=== PATIENT | female | born 1980 | race American Indian/Alaskan Native ===

== ENCOUNTER 2018-12-19 16:55 | Emergency (ER) | payer MEDICAID ==
[2018-12-19 17:22] VITALS: BP 153/75
--- NOTE | 2018-12-19 17:27 | Event Note ---
ED Screening Note Date of service: 12/19/17 Time: 17:23 ED Screening Note: Pt complains of right flank x this morning. +urinary frequency. also states pain in right leg when bending over. denies dysuria/hematuria, or hx of kidney stones +R CVA tenderness states pain 8/10 in severity This initial assessment/diagnostic orders/clinical plan/treatment(s) is/are subject to change based on patients health status, clinical progression and re- assessment by fellow clinical providers in the ED. Further treatment and workup at subsequent clinical providers discretion. Patient/guardian urged not to elope from the ED as their condition may be serious if not clinically assessed and managed. Initial orders include:
[2018-12-19 18:46] LABS: Bilirubin,Urine NEG (Negative); Blood,Urine LG (Negative); Color,Urine Yellow (Yellow); Mucus,Urine 3+ /HPF; Protein,Urine <15 mg/dL mg/dL (Negative); Urobilinogen,Urine < 2.0 mg/dL (<2.0)
[2018-12-19 18:53] LABS: Hematocrit 36.8 % (30.3-42.9); Hemoglobin 11.7 gm/dl (10.1-14.3); Mean Corpuscular HGB Conc 32 % (30-34); Mean Corpuscular Volume 88 fl (79-97); Platelet Count 302 K/mm3 (140-440); Red Blood Count 4.17 M/mm3 (3.65-5.03); Red Cell Distribution Width 15.4 % (13.2-15.2)
[2018-12-19 19:08] LABS: BUN/Creatinine Ratio 15; Blood Urea Nitrogen 9 mg/dL (7-17); Calcium 8.9 mg/dL (8.4-10.2); Hemolysis Index 6
--- NOTE | 2018-12-19 20:07 | Emergency Department Report ---
ED Abdominal Pain HPI - General Chief Complaint: Abdominal Pain Stated Complaint: R FLANK/KNEE PAIN Time Seen by Provider: 12/19/18 17:22 Source: patient Mode of arrival: Ambulatory Limitations: No Limitations - History of Present Illness Initial Comments: This is a 38-year-old female with no prior medical conditions who presents to ED complaining of right sided upper flank pain that began this morning. Patient's physician woke up this morning and felt her right sharp aching pain to her right abdomen area. She states that pain is worsened when she moves. She denies any injury trauma to the abdomen. She denies nausea vomiting or diarrhea. She denies fever/any urinary symptoms MD Complaint: flank pain (right) -: This morning Radiation: none Migration to: no migration Severity scale (0 -10): 5 Quality: aching Worsens With: movement - Related Data Previous Rx's Medication Instructions Recorded Last Taken Type Cyclobenzaprine [Flexeril] 10 mg PO QHS PRN #20 tablet 12/19/18 Unknown Rx Ibuprofen [Motrin 800 MG tab] 800 mg PO Q8HR PRN #30 tablet 12/19/18 Unknown Rx Allergies Allergy/AdvReac Type Severity Reaction Status Date / Time No Known Allergies Allergy Unverified 12/19/18 16:58 ED Review of Systems ROS: Stated complaint: R FLANK/KNEE PAIN Other details as noted in HPI Comment: All other systems reviewed and negative ED Past Medical Hx - Past Medical History Previous Medical History?: No - Surgical History Past Surgical History?: Yes Additional Surgical History: Tubal ligation 04/2006 - Social History Smoking Status: Never Smoker Substance Use Type: None - Medications Home Medications: Home Medications Medication Instructions Recorded Confirmed Last Taken Type Cyclobenzaprine [Flexeril] 10 mg PO QHS PRN #20 tablet 12/19/18 Unknown Rx Ibuprofen [Motrin 800 MG tab] 800 mg PO Q8HR PRN #30 tablet 12/19/18 Unknown Rx ED Physical Exam - General Limitations: No Limitations General appearance: alert, in no apparent distress - Head Head exam: Present: atraumatic, normocephalic - Eye Eye exam: Present: normal appearance - ENT ENT exam: Present: mucous membranes moist - Neck Neck exam: Present: normal inspection - Respiratory Respiratory exam: Present: normal lung sounds bilaterally. Absent: respiratory distress - Cardiovascular Cardiovascular Exam: Present: regular rate, normal rhythm. Absent: systolic murmur, diastolic murmur, rubs, gallop - GI/Abdominal GI/Abdominal exam: Present: soft, normal bowel sounds. Absent: distended, tenderness, guarding, mass - Extremities Exam Extremities exam: Present: normal inspection, full ROM - Back Exam Back exam: Present: normal inspection, full ROM, CVA tenderness (R) (tenderness to palpation of the right flank region. No bruising, no swelling, no ecchymosis noted). Absent: CVA tenderness (L) - Neurological Exam Neurological exam: Present: alert, oriented X3, normal gait - Psychiatric Psychiatric exam: Present: normal affect, normal mood - Skin Skin exam: Present: warm, dry, intact, normal color. Absent: rash ED Course Vital Signs 12/19/18 17:00 Temperature 98.4 F Pulse Rate 62 Respiratory 18 Rate Blood Pressure 153/75 O2 Sat by Pulse 98 Oximetry ED Medical Decision Making - Lab Data Result diagrams: 12/19/18 18:20 12/19/18 18:20 Laboratory Last Values WBC 5.5 K/mm3 (4.5-11.0) 12/19/18 18:20 RBC 4.17 M/mm3 (3.65-5.03) 12/19/18 18:20 Hgb 11.7 gm/dl (10.1-14.3) 12/19/18 18:20 Hct 36.8 % (30.3-42.9) 12/19/18 18:20 MCV 88 fl (79-97) 12/19/18 18:20 MCH 28 pg (28-32) 12/19/18 18:20 MCHC 32 % (30-34) 12/19/18 18:20 RDW 15.4 % (13.2-15.2) H 12/19/18 18:20 Plt Count 302 K/mm3 (140-440) 12/19/18 18:20 Sodium 141 mmol/L (137-145) 12/19/18 18:20 Potassium 3.9 mmol/L (3.6-5.0) 12/19/18 18:20 Chloride 102.6 mmol/L (98-107) 12/19/18 18:20 Carbon Dioxide 27 mmol/L (22-30) 12/19/18 18:20 Anion Gap 15 mmol/L 12/19/18 18:20 BUN 9 mg/dL (7-17) 12/19/18 18:20 Creatinine 0.6 mg/dL (0.7-1.2) L 12/19/18 18:20 Estimated GFR > 60 ml/min 12/19/18 18:20 BUN/Creatinine Ratio 15 % 12/19/18 18:20 Glucose 83 mg/dL (65-100) 12/19/18 18:20 Calcium 8.9 mg/dL (8.4-10.2) 12/19/18 18:20 HCG, Qual Negative (Negative) 12/19/18 18:20 Urine Color Yellow (Yellow) 12/19/18 Unknown Urine Turbidity Hazy (Clear) 12/19/18 Unknown Urine pH 5.0 (5.0-7.0) 12/19/18 Unknown Ur Specific [place] 1.029 (1.003-1.030) 12/19/18 Unknown Urine Protein <15 mg/dl mg/dL (Negative) 12/19/18 Unknown Urine Glucose (UA) Neg mg/dL (Negative) 12/19/18 Unknown Urine Ketones Neg mg/dL (Negative) 12/19/18 Unknown Urine Blood Lg (Negative) 12/19/18 Unknown Urine Nitrite Neg (Negative) 12/19/18 Unknown Urine Bilirubin Neg (Negative) 12/19/18 Unknown Urine Urobilinogen < 2.0 mg/dL (<2.0) 12/19/18 Unknown Ur Leukocyte Esterase Tr (Negative) 12/19/18 Unknown Urine WBC (Auto) 2.0 /HPF (0.0-6.0) 12/19/18 Unknown Urine RBC (Auto) 5.0 /HPF (0.0-6.0) 12/19/18 Unknown U Epithel Cells (Auto) 13.0 /HPF (0-13.0) 12/19/18 Unknown Urine Mucus 3+ /HPF 12/19/18 Unknown - Medical Decision Making This is a 38-year-old female who presents to ED with right flank pain most likely secondary to muscle strain. All labs are within normal limits, CBC, don't BMP urinalysis and urine tests were ordered. Urinalysis shows no signs of infection or suggestive of kidney stone. Normal findings. Negative test. Pain is only worsened with movement which is suggestive of muscle strain. Discussed the patient to follow up with her primary care physician in 3-5 days. Discussed with patient to rest and no strenuous activities for the next couple o f days. Vital signs are normal she is in no acute distress - Differential Diagnosis UTI, kidney stone, , myalgia Critical care attestation.: If time is entered above; I have spent that time in minutes in the direct care of this critically ill patient, excluding procedure time. ED Disposition Clinical Impression: Muscle strain, Flank pain Disposition: - TO HOME OR SELFCARE Is pt being admited?: No Does the pt Need Aspirin: No Condition: Stable Instructions: Abdominal Pain (ED), Muscle Strain (ED) Additional Instructions: Make sure to follow up with the primary care physician as discussed. Take all your medications as you've been prescribed. If you have any worsening symptoms or develop new symptoms please return to ED immediately. Referrals: PRIMARY CARE, [Primary Care Provider] - 3-5 Days [facility] [Outside] - 3-5 Days [facility] [Outside] - 3-5 Days Forms: Work/School Release Form(ED) Time of Disposition: 20:12
== END 2018-12-19 20:27 | disposition home or self-care (01) ==
LOC: ED 16:55
DX: S39.011A Strain of muscle, fascia and tendon of abdomen, initial encounter (principal); S86.811A Strain of other muscle(s) and tendon(s) at lower leg level, right leg, initial encounter; Z98.51 Tubal ligation status; Z79.899 Other long term (current) drug therapy; X58.XXXA Exposure to other specified factors, initial encounter; Y93.89 Activity, other specified; Y92.89 Other specified places as the place of occurrence of the external cause; Y99.8 Other external cause status
CPT/HCPCS: 36415; 80048; 81001; 84703; 85027

== ENCOUNTER 2019-07-28 09:49 | Emergency (ER) | payer MEDICAID ==
[2019-07-28 09:58] VITALS: BP 142/90
[2019-07-28] MEDS ORDERED: predniSONE 20 MG TAB PO ONE (10:40)
[2019-07-28] MEDS ORDERED: KETOROLAC 60 MG/2 ML INJ IM ONE (10:40)
--- NOTE | 2019-07-28 10:44 | Emergency Department Report ---
ED Neck Pain/Injury HPI - General Chief Complaint: Neck Pain/Injury Stated Complaint: NECK AND SHOULDER PAIN Time Seen by Provider: 07/28/19 10:36 Mode of arrival: Ambulatory Limitations: No Limitations - History of Present Illness Initial Comments: This is a 39-year-old female nontoxic, well nourished in appearance, no acute signs of distress presents to the ED with c/o of left upper back pain with radiation to left shoulder. Patient stated that she woke up with pain. Patient stated pain is aggravated with movement and resolved with rest. Patient denies any trauma. Denies any bladder or bowel instability. Patient denies any urinary symptoms. Denies any fever, chills, nausea, vomiting, headache, stiff neck, chest pain or shortness of breath. Patient denies any numbness or tingling. Denies any allergies. Denies significant past medical history. MD Complaint: upper back pain -: week(s) Radiation: left shoulder Severity: mild Severity scale (0 -10): 5 Quality: aching Consistency: intermittent Improves With: immobilization Worsens With: movement of extremity, movement of neck Associated Symptoms: none. denies: headache, fever, numbness, tingling, weakness, vertigo, difficulty walking, swollen glands, difficulty swallowing, nausea, vomiting Treatments Prior to Arrival: none - Related Data Previous Rx's Medication Instructions Recorded Last Taken Type Ibuprofen [Motrin 800 MG tab] 800 mg PO Q8HR PRN #30 tablet 12/19/18 Unknown Rx Cyclobenzaprine [Flexeril] 10 mg PO HS #20 tablet 12/20/18 Unknown Rx Cyclobenzaprine [Flexeril] 10 mg PO QHS PRN #10 tablet 07/28/19 Unknown Rx Naproxen 500 mg PO Q12H PRN #20 tablet 07/28/19 Unknown Rx Allergies Allergy/AdvReac Type Severity Reaction Status Date / Time No Known Allergies Allergy Unverified 12/19/18 16:58 ED Review of Systems ROS: Stated complaint: NECK AND SHOULDER PAIN Other details as noted in HPI Constitutional: denies: chills, fever Eyes: denies: eye pain, eye discharge, vision change ENT: denies: ear pain, throat pain Respiratory: denies: cough, shortness of breath, wheezing Cardiovascular: denies: chest pain, palpitations Endocrine: no symptoms reported Gastrointestinal: denies: abdominal pain, nausea, diarrhea Genitourinary: denies: urgency, dysuria, discharge Musculoskeletal: denies: back pain, joint swelling, arthralgia Skin: denies: rash, lesions Neurological: denies: headache, weakness, paresthesias Psychiatric: denies: anxiety, depression Hematological/Lymphatic: denies: easy bleeding, easy bruising ED Past Medical Hx - Past Medical History Previous Medical History?: No - Surgical History Past Surgical History?: Yes Additional Surgical History: Tubal ligation 04/2006 - Social History Smoking Status: Never Smoker Substance Use Type: None - Medications Home Medications: Home Medications Medication Instructions Recorded Confirmed Last Taken Type Ibuprofen [Motrin 800 MG tab] 800 mg PO Q8HR PRN #30 tablet 12/19/18 Unknown Rx Cyclobenzaprine [Flexeril] 10 mg PO HS #20 tablet 12/20/18 Unknown Rx Cyclobenzaprine [Flexeril] 10 mg PO QHS PRN #10 tablet 07/28/19 Unknown Rx Naproxen 500 mg PO Q12H PRN #20 tablet 07/28/19 Unknown Rx ED Physical Exam - General Limitations: No Limitations General appearance: alert, in no apparent distress - Head Head exam: Present: atraumatic, normocephalic - Eye Eye exam: Present: normal appearance - Neck Neck exam: Present: normal inspection, full ROM. Absent: tenderness, meningismus, lymphadenopathy - Extremities Exam Extremities exam: Present: normal inspection, full ROM, normal capillary refill. Absent: tenderness, joint swelling - Back Exam Back exam: Present: normal inspection, full ROM, paraspinal tenderness (left cervical paraspinal). Absent: tenderness, CVA tenderness (R), CVA tenderness (L), muscle spasm, vertebral tenderness, rash noted - Neurological Exam Neurological exam: Present: alert, oriented X3, normal gait - Psychiatric Psychiatric exam: Present: normal affect, normal mood - Skin Skin exam: Present: warm, dry, intact, normal color. Absent: rash ED Course Vital Signs 07/28/19 09:53 Temperature 98.8 F Pulse Rate 86 Respiratory 18 Rate Blood Pressure 142/90 O2 Sat by Pulse 98 Oximetry - Reevaluation(s) Reevaluation #1: 07/28/19 10:43 Patient is speaking in full sentences with no signs of distress noted. ED Medical Decision Making - Medical Decision Making This is a 39-year-old female that presents with cervical muscle strain. Patient is stable was examined by me. There is no spinal tenderness. There is no cauda equina syndrome during examination. No bladder or bowel instability. Patient received Toradol 60 mg IM and prednosone in the ED which stated that her symptoms has resolved and subsided. Patient is discharged with muscle relaxant and Motrin. Patient was instructed not to operate any machinery while taking muscle relaxant as they cause her drowsiness. Patient was referred to Follow-up with a primary care doctor in 3-5 days or if symptoms worsen and continue return to emergency room as soon as possible. At time of discharge, the patient does not seem toxic or ill in appearance. No acute signs of distress noted. Patient agrees to discharge treatment plan of care. No further questions noted by the patient. This chart is dictated with using [employer] Critical care attestation.: If time is entered above; I have spent that time in minutes in the direct care of this critically ill patient, excluding procedure time. ED Disposition Clinical Impression: Cervical muscle strain Qualifiers: Encounter type: initial encounter Qualified Code(s): S16.1XXA - Strain of muscle, fascia and tendon at neck level, initial encounter Disposition: DC-01 TO HOME OR SELFCARE Is pt being admited?: No Does the pt Need Aspirin: No Condition: Stable Instructions: Cyclobenzaprine (By mouth), Muscle Strain (ED) Additional Instructions: Follow-up with your primary care doctor in 3-5 days or if symptoms worsen such as bladder or bowel stability, chest pain, short of breath, numbness or tingling sensation in extremities, headache, dizziness, visual changes, nausea vomiting, or abdominal pain, return back to emergency room as was possible. Take naproxen and Flexeril as prescribed. Do not operate heavy machinery while taking Flexeril due to sedation Prescriptions: Cyclobenzaprine [Flexeril] 10 mg PO QHS PRN #10 tablet PRN Reason: Muscle Spasm Naproxen 500 mg PO Q12H PRN #20 tablet PRN Reason: Pain , Severe (7-10) Referrals: SHAWNA PARADA MD [Primary Care Provider] - 3-5 Days PEPPER BRYANT MD [Staff Physician] - 3-5 Days [facility] [Provider Group] - 3-5 Days Forms: Work/School Release Form(ED)
== END 2019-07-28 12:15 | disposition home or self-care (01) ==
LOC: ED 09:49
DX: S16.1XXA Strain of muscle, fascia and tendon at neck level, initial encounter (principal); Z98.51 Tubal ligation status; Z79.1 Long term (current) use of non-steroidal anti-inflammatories (NSAID); Z79.899 Other long term (current) drug therapy; X58.XXXA Exposure to other specified factors, initial encounter; Y93.89 Activity, other specified; Y92.89 Other specified places as the place of occurrence of the external cause; Y99.8 Other external cause status
CPT/HCPCS: 96372; 99282; J1885; J7512

== ENCOUNTER 2020-03-05 15:52 | Emergency (ER) | payer MEDICAID ==
[2020-03-05 16:39] VITALS: BP 140/94
--- NOTE | 2020-03-05 16:58 | Emergency Department Report ---
Chief Complaint: Extremity Injury, Lower Stated Complaint: LT FOOT/HEEL PAIN Time Seen by Provider: 03/05/20 16:45 - HPI History of Present Illness: This is a 40-year-old female with no prior medical history presents the ED complaining of left heel pain for about a week now. Patient states that she is noticed on her left foot is a little dry cracked more than the right. Patient states that she did not sustain any bleeding injuries. Patient denies any swelling, rash, difficulty walking. She denies fever/chills/nausea vomiting/abdominal pain/chest pain shortness of breath or any other problems. - ROS Review of Systems: All systems reviewed and negative - Exam Vital Signs: Vital Signs 03/05/20 16:38 Temperature 98.2 F Pulse Rate 92 H Respiratory 20 Rate Blood Pressure 140/94 O2 Sat by Pulse 98 Oximetry Physical Exam: Normal exam GENERAL: Alert and oriented x3, no apparent distress, Normal Gait, atraumatic. HEAD: Head is normocephalic and a-traumatic. EXTREMITIES/MUSCULOSKELETAL: No cyanosis, clubbing, rash, lesions or edema. Full ROM bilaterally. UE/LE Pulses 2+ bilaterally. LE and UE 5+ strength bilaterally, bilateral heel dryness, several cracks noted. No bleeding noted to bilateral heel or toes drainage. Nontender to palpation bilaterally SKIN: Warm and dry, No lesions, No ulceration or induration present. MSE screening note: Focused history and physical exam performed. Due to findings the following was ordered: ED Medical Decision Making - Medical Decision Making 40-year-old female presents to the ED with dry cracked heels. Patient had no medical emergency throughout ED stay. Discussed with patient need to follow-up traced. I discussed foot soak heel care for the patient. Vital signs are normal and she is in no acute distress. Patient understands and instructions. ED Disposition for MSE Clinical Impression: Heel callus, Heel pain, bilateral Disposition: DC-01 TO HOME OR SELFCARE Is pt being admited?: No Does the pt Need Aspirin: No Condition: Stable Instructions: Corns and Calluses, Heel Spur Additional Instructions: Follow-up with the bioinformatician as discussed. If you have any worsening symptoms please return to the ED. Please make sure you soak foot as to avoid worsening of cracks. Make sure to use Aquaphor, Eucerin and foot soaks moisturizers Prescriptions: Emollient Combination No.114 [Eucerin Advanced Repair] 1 applic TP DAILY #1 cream..g. Referrals: [facility] [Outside] - 3-5 Days [facility] [Outside] - 3-5 Days [facility] [Outside] - 3-5 Days MADALYN HOOKS DPM [Staff Physician] - 3-5 Days DANIELLE BILLS MD [Staff Physician] - 3-5 Days Forms: Work/School Release Form(ED) Time of Disposition: 17:05
== END 2020-03-05 17:58 | disposition home or self-care (01) ==
LOC: ED 15:52
DX: L84 Corns and callosities (principal); M79.672 Pain in left foot; M79.671 Pain in right foot
CPT/HCPCS: 99282

== ENCOUNTER 2020-10-15 12:06 | Outpatient (CLI) | payer MEDICAID, OTHER ==
[2020-10-15 12:48] LABS: Eosinophils % (Auto) 0.7 % (0.0-4.3); Hematocrit 34.8 % (30.3-42.9); Hemoglobin 11.4 gm/dl (10.1-14.3); Lymphocytes # (Auto) 2.6 K/mm3 (1.2-5.4); Lymphocytes % (Auto) 37.1 % (13.4-35.0); Mean Corpuscular HGB Conc 33 % (30-34); Mean Corpuscular Volume 84 fl (79-97); Monocytes # (Auto) 0.5 K/mm3 (0.0-0.8); Monocytes % (Auto) 7.6 % (0.0-7.3); Platelet Count 368 K/mm3 (140-440); Red Blood Count 4.13 M/mm3 (3.65-5.03); Red Cell Distribution Width 16.1 % (13.2-15.2)
[2020-10-15 12:49] LABS: Basophils % (Auto) 0.3 % (0.0-1.8)
[2020-10-15 13:01] LABS: Alanine Aminotransferase 20 units/L (7-56); Blood Urea Nitrogen 12 mg/dL (7-17); Calcium 9.5 mg/dL (8.4-10.2); HDL Cholesterol 69 mg/dL (40-59); Hemolysis Index 1; LDL Cholesterol,Direct 113 mg/dL (50-130)
[2020-10-15 13:02] LABS: BUN/Creatinine Ratio 20
== END 2020-10-15 12:07 | disposition home or self-care (01) ==
LOC: LAB 12:06
PROVIDERS: ATTEND Internal Medicine
DX: E66.01 Morbid (severe) obesity due to excess calories (principal); Z00.00 Encounter for general adult medical examination without abnormal findings; Z13.1 Encounter for screening for diabetes mellitus; Z13.29 Encounter for screening for other suspected endocrine disorder; I10 Essential (primary) hypertension; Z13.220 Encounter for screening for lipoid disorders; E55.9 Vitamin D deficiency, unspecified
CPT/HCPCS: 36415; 80053; 80061; 82306; 83036; 84443; 85025

== ENCOUNTER 2021-04-20 20:46 | Emergency (ER) | payer OTHER ==
[2021-04-20 22:08] VITALS: BP 218/103
--- NOTE | 2021-04-20 23:21 | Emergency Department Report ---
ED Extremity Problem HPI - General Chief complaint: Extremity Injury, Lower Stated complaint: LEFT FOOT PAIN/ Source: patient Mode of arrival: Ambulatory Limitations: No Limitations - History of Present Illness Initial comments: Patient is a 41-year-old -[place] female with a history of hypertension who presents to the ED with complaint of persistent bilateral plantar foot pain for the last 1 year intermittently, due to persistent cracked open sores on her plantar feet. Patient states that she has previously been evaluated by a quality assistant who prescribed topical steroid ointment but that this ointment did not work. Patient states that in the last 2 weeks, she has not been able to bear weight on her bilateral feet because of worsening bilateral plantar foot p ain. Patient denies fever, chills, nausea and vomiting, traumatic injury, chest pain, shortness of breath, numbness and tingling or weakness of bilateral lower extremities. MD Complaint: extremity pain (Bilateral plantar foot pain), other (cracked plantar foot with pain) -: Gradual, year(s) (1) Location: bilateral lower extremity (bilateral foot) History of Same: Yes (chronic) -: Yes arthralgia, No fever, No associated dyspnea, No associated chest pain Radiation: distal Severity scale (0 -10): 6 Quality: burning, aching, sharp Consistency: constant Improves with: rest Worsens with: weight bearing, walking, exertion, palpation Associated Symptoms: denies other symptoms. denies: chest pain, shortness of breath, fever, myalgias, arthralgias - Related Data Previous Rx's Medication Instructions Recorded Last Taken Type Cyclobenzaprine [Flexeril] 10 mg PO HS #20 tablet 12/20/18 Unknown Rx Cyclobenzaprine [Flexeril] 10 mg PO QHS PRN #10 tablet 07/28/19 Unknown Rx Naproxen 500 mg PO Q12H PRN #20 tablet 07/28/19 Unknown Rx Emollient Combination No.114 1 applic TP DAILY #1 cream..g. 03/05/20 Unknown Rx [Eucerin Advanced Repair] Acitretin [Soriatane] 1 cap PO QDAY #30 cap 04/20/21 Unknown Rx Ibuprofen [Motrin 800 MG tab] 800 mg PO Q8HR PRN #30 tablet 04/20/21 Unknown Rx Triamcinolone Acetonide 15 gm TP BID #1 tube 04/20/21 Unknown Rx [Triamcinolone Acetonide Oint 0.5%] predniSONE [Deltasone] 60 mg PO QDAY #15 tab 04/20/21 Unknown Rx Allergies Allergy/AdvReac Type Severity Reaction Status Date / Time No Known Allergies Allergy Verified 03/05/20 16:34 ED Review of Systems ROS: Stated complaint: LEFT FOOT PAIN/ Other details as noted in HPI Constitutional: denies: chills, fever Eyes: denies: eye pain, eye discharge, vision change ENT: denies: ear pain, throat pain Respiratory: denies: cough, shortness of breath, wheezing Cardiovascular: denies: chest pain, palpitations Endocrine: no symptoms reported Gastrointestinal: denies: abdominal pain, nausea, diarrhea Genitourinary: denies: urgency, dysuria, discharge Musculoskeletal: arthralgia (bilateral plantar foot pain due to multiple cracked open sores). denies: back pain, joint swelling Skin: other (bilateral cracked open sores of bilateral plantar foot with pain). denies: rash, lesions Neurological: denies: headache, weakness, paresthesias Psychiatric: denies: anxiety, depression Hematological/Lymphatic: denies: easy bleeding, easy bruising ED Past Medical Hx - Past Medical History Previous Medical History?: Yes Hx Hypertension: Yes (LOSARTAN 100 DAILY) - Surgical History Past Surgical History?: Yes Additional Surgical History: Tubal ligation 04/2006 - Social History Smoking Status: Never Smoker Substance Use Type: None - Medications Home Medications: Home Medications Medication Instructions Recorded Confirmed Last Taken Type Cyclobenzaprine [Flexeril] 10 mg PO HS #20 tablet 12/20/18 Unknown Rx Cyclobenzaprine [Flexeril] 10 mg PO QHS PRN #10 tablet 07/28/19 Unknown Rx Naproxen 500 mg PO Q12H PRN #20 tablet 07/28/19 Unknown Rx Emollient Combination No.114 1 applic TP DAILY #1 cream..g. 03/05/20 Unknown Rx [Eucerin Advanced Repair] Acitretin [Soriatane] 1 cap PO QDAY #30 cap 04/20/21 Unknown Rx Ibuprofen [Motrin 800 MG tab] 800 mg PO Q8HR PRN #30 tablet 04/20/21 Unknown Rx Triamcinolone Acetonide 15 gm TP BID #1 tube 04/20/21 Unknown Rx [Triamcinolone Acetonide Oint 0.5%] predniSONE [Deltasone] 60 mg PO QDAY #15 tab 04/20/21 Unknown Rx ED Physical Exam - General Limitations: No Limitations General appearance: alert, in no apparent distress - Head Head exam: Present: atraumatic, normocephalic, normal inspection - Eye Eye exam: Present: normal appearance, PERRL, EOMI Pupils: Present: normal accommodation - ENT ENT exam: Present: normal exam, normal orophraynx, mucous membranes moist, TM's normal bilaterally, normal external ear exam - Neck Neck exam: Present: normal inspection, full ROM. Absent: tenderness, lymphadenopathy, thyromegaly - Respiratory Respiratory exam: Present: normal lung sounds bilaterally. Absent: respiratory distress, wheezes, rales, rhonchi, chest wall tenderness, accessory muscle use, decreased breath sounds - Cardiovascular Cardiovascular Exam: Present: regular rate, normal rhythm, normal heart sounds. Absent: systolic murmur, diastolic murmur, rubs, gallop - GI/Abdominal GI/Abdominal exam: Present: soft, normal bowel sounds. Absent: tenderness, guarding, rebound, hyperactive bowel sounds, organomegaly - Extremities Exam Extremities exam: Present: normal inspection, full ROM, tenderness (Palpable bilateral plantar foot tenderness due to open cracked sores), normal capillary refill. Absent: pedal edema, joint swelling, calf tenderness - Back Exam Back exam: Present: normal inspection, full ROM. Absent: tenderness, CVA tenderness (R), CVA tenderness (L), muscle spasm, paraspinal tenderness, verteb ral tenderness - Neurological Exam Neurological exam: Present: alert, oriented X3, CN II-XII intact, normal gait, reflexes normal - Psychiatric Psychiatric exam: Present: normal affect, normal mood - Skin Skin exam: Present: warm, dry, intact, normal color. Absent: rash ED Course Vital Signs 04/20/21 04/20/21 22:04 22:08 Temperature 98.3 F Pulse Rate 91 H Respiratory 18 Rate Blood Pressure 218/103 O2 Sat by Pulse 100 Oximetry ED Medical Decision Making - Medical Decision Making This is a 41-year-old -[place] female with a history of hypertension who presents to the ED with complaint of persistent bilateral plantar foot pain for the last 1 year intermittently, due to persistent cracked open sores on her plantar feet. Patient states that she has previously been evaluated by a quality assistant who prescribed topical steroid ointment but that this ointment did not work. Patient states that in the last 2 weeks, she has not been able to bear weight on her bilateral feet because of worsening bilateral plantar foot pain. In the ED, patient is alert and oriented x3 and is not in any distress. Patient was discharged home on medications based on the physical exam findings of suspected plantar fasciitis and psoriasis. Patient was advised to follow-up with her primary care physician and to also consider following up with a quality assistant in 7 to 10 days for reevaluation. Patient is advised return to the ED immediately if symptoms get worse. - Differential Diagnosis plantar fasciitis; plantar psoriasis; tinea corporis Critical care attestation.: If time is entered above; I have spent that time in minutes in the direct care of this critically ill patient, excluding procedure time. ED Disposition Clinical Impression: Chronic pain of both feet, Bilateral plantar fasciitis, Cracked skin on feet Disposition: 01 HOME / SELF CARE / HOMELESS Is pt being admited?: No Does the pt Need Aspirin: No Condition: Stable Instructions: Plantar Fasciitis Rehab-[facility], Heel Pad Atrophy Rehab- [facility] Additional Instructions: Take medication with food, apply the ointment to the affected areas as advised, follow-up with your primary care physician in 7 to 10 days for reevaluation. Consider following up with a quality assistant for further evaluation and tests. Return to the ED immediately if symptoms get worse. Prescriptions: predniSONE [Deltasone] 60 mg PO QDAY #15 tab Ibuprofen [Motrin 800 MG tab] 800 mg PO Q8HR PRN #30 tablet PRN Reason: Pain Acitretin [Soriatane] 1 cap PO QDAY #30 cap Triamcinolone Acetonide [Triamcinolone Acetonide Oint 0.5%] 15 gm TP BID #1 tube Referrals: PEPPER BRYANT MD [Staff Physician] - 7-10 days Time of Disposition: 23:22 Print Language: BELARUSIAN
[2021-04-20] MEDS ORDERED: IBUPROFEN 600 MG TAB PO ONE (23:37)
[2021-04-20] MEDS ORDERED: predniSONE 20 MG TAB PO ONE (23:37)
== END 2021-04-21 00:40 | disposition home or self-care (01) ==
LOC: ED 20:46
DX: M79.672 Pain in left foot (principal); M79.671 Pain in right foot; G89.29 Other chronic pain; M72.2 Plantar fascial fibromatosis; L98.8 Other specified disorders of the skin and subcutaneous tissue
CPT/HCPCS: 99282

== ENCOUNTER 2021-04-26 11:56 | Outpatient (CLI) | payer OTHER ==
[2021-04-26 12:56] LABS: Alanine Aminotransferase 11 units/L (7-56); Albumin 3.9 g/dL (3.9-5); Blood Urea Nitrogen 14 mg/dL (7-17); Calcium 9.1 mg/dL (8.4-10.2); Hemolysis Index 3
[2021-04-26 13:04] LABS: BUN/Creatinine Ratio 20
== END 2021-04-26 11:57 | disposition home or self-care (01) ==
LOC: LAB 11:56
PROVIDERS: ATTEND Internal Medicine
DX: R73.03 Prediabetes (principal); E53.8 Deficiency of other specified B group vitamins
CPT/HCPCS: 36415; 80053; 82607